=== PATIENT | female | born 1990 | race Caucasian/White ===

== ENCOUNTER 2020-08-22 14:51 | Emergency (ER) | payer OTHER, SELFPAY ==
[2020-08-22 15:01] VITALS: BP 129/75; PULSE 84; RESP 18; TEMP 37.1; O2SAT 100; BMI 35.4
--- NOTE | 2020-08-22 15:12 | ED.ALLEREA ---
HPI - Allergic Reaction General Chief complaint: Allergic Reaction Stated complaint: allergic reaction Time Seen by Provider: 08/22/20 15:06 Source: patient Mode of arrival: ambulatory History of Present Illness HPI narrative: 30-year-old female with a PMHx of asthma complaining of pruritus, throat itching, cough, and chest tightness s/p receiving flu shot today around 2:00pm. reports using albuterol inhaler with resolution of chest tightness. Denies SOB, rash, drooling, inability to handle secretions. Denies known allergies. Reports has received flu vaccine in the past without reaction complaint: allergic reaction Onset (ago): hour(s) Exposure: medication Symptoms: itching and hoarseness Severity: moderate Related Data Allergies Allergy/AdvReac Type Severity Reaction Status Date / Time No Known Allergies Allergy Verified 08/22/20 14:55 Review of Systems Review of Systems: Constitutional: No Weight loss, No Fever, No Chills, No Night Sweats, ENT/Mouth: No Nasal Congestion, No Sinus Pain, +Hoarseness, No Rhinorrhea, No Swallowing Difficulty Cardiovascular: No Chest Pain, + SOB (improving) Respiratory: + Cough, No Sputum, No Wheezing, No Smoke Exposure Gastrointestinal: No Nausea, No Vomiting, N Skin: No Skin Lesions, No rash Yes all other systems are reviewed and are negative PMFSH Past Medical History Attestation statement: The following information was validated with the patient. Medical History Asthma Social History Social History Smoking Status: Never smoker Advance Directives: No Advance Directives Information Provided: Yes Physical Exam Vital Signs and I&O and Narrative: Vital Signs and I&O: Vital Signs Temp 97.8 F 08/22/20 16:00 Pulse 68 08/22/20 16:00 Resp 16 08/22/20 16:00 BP 106/58 L 08/22/20 16:00 Pulse Ox 100 08/22/20 16:00 Intake & Output 08/21/20 08/22/20 08/22/20 18:59 06:59 18:59 Weight 90.718 kg Body Mass Index 35.4 Const: General: cooperative and healthy appearing Orientation/consciousness: patient oriented x3 Limitations: no limitations HENMT: Head: Yes normal to inspection Ears: hearing grossly normal bilaterally General nose exam: Normal external nose present Face and sinus: Yes normal facial exam Mouth: Normal oral and palatal mucosa present, no drooling and no muffled voice Throat: Yes posterior oropharynx normal, Yes uvula midline and No uvular edema Eyes: General: appearance normal, both eyes and all related structures Pupils: Equal, round and reactive pupils present EOM: EOMs intact bilaterally Neck: Neck: Yes normal visual inspection, Yes trachea midline and Yes supple Resp: Effort & Inspection: normal respiratory effort and no stridor Auscultation: clear to auscultation bilaterally, no crackles, no rales, no rhonchi and no wheezes Cardio: Rate: regular rate Heart sounds: S1 normal heart sound present and S2 normal heart sound present Skin: Rashes: no rashes Wounds: no wounds Neuro: General: patient oriented x3 Cranial nerves: Yes Equal, round and reactive pupils present Course Reevaluation(s) Reevaluation #1: on re-evaluation patient reports symptomatic resolution. Vital signs stable. Denies throat closing sensation, cough, itching, swelling, difficulty breathing. Worrisome signs and symptoms and strict return precautions discussed. Patient verbalized understanding feel safe for discharge Time: 16:45 MDM - Allergic Reaction MDM Narrative Medical decision making narrative: 30-year-old female with a PMHx of asthma complaining of pruritus, throat itching, cough, and chest tightness s/p receiving flu shot today around 2:00pm. On exam VSS, NAD/well-appearing, lungs CTA. No oral swelling / drooling. Uvula midline. Likely allergic reaction. No anaphylaxis. Low concern for asthma exacerbation plan: Benadryl, Pepcid, Solu-Medrol, reassess Differential Diagnosis Differential diagnosis: Likely allergic reaction, adverse reaction to drug, viral enanthem and urticaria Medical Records Attestation: I reviewed the patient's medical records. Discharge Plan Discharge Clinical Impression: Allergic reaction Patient Disposition: Home, Self-Care Instructions: Allergies (ED) Additional Instructions: if you develop itching, swelling, rash, throat closing sensation, difficulty breathing return to the ED immediately taking Benadryl at home if symptoms recur /you develop itching Take Zyrtec during the day as it will not make you drowsy You may also use your albuterol inhaler Follow-up with her primary care doctor/advertising director for allergy testing Referrals: Physician,Unknown [Primary Care Provider] - 2 days
[2020-08-22] MEDS: diphenhydrAMINE HCL 50 MG/ML VIAL 25 MG IVPUSH (15:16)
[2020-08-22] MEDS: Famotidine/PF 20 MG/2 ML VIAL IVPUSH (15:17)
[2020-08-22] MEDS: methylPREDNISolone Sod Succ/PF 125 MG/2 ML VIAL IVPUSH (15:17)
--- NOTE | 2020-08-22 15:36 | PC.NURSE ---
PT ALERT AND VERBAL. SKIN WPD. RESPIRATIONS EVEN AND NON LABORED. LUNGS CTA. REPORTS ITCHINESS TO LEFT UPPER ARM AND THROAT SINCE RECEIVING FLU SHOT THIS AFTERNOON. CLEARING THROAT OFTEN. NO OBVIOUS SWELLING, REDENESS TO BACK OF THROAT. NO OBVIOUS HIVES, REDNESS, SWELLING TO LEFT UPPER ARM. PT MEDICATED WITH SOLUMEDROL, PEPCID, BENEDRYL PER EMAR. WILL CONTINUE TO MONITOR.
[2020-08-22 16:00] VITALS: BP 106/58; PULSE 68; RESP 16; TEMP 36.6; O2SAT 100
== END 2020-08-22 17:30 | disposition home or self-care (01) ==
PROVIDERS: Emergency Provider Emergency Medicine
DX: T80.62XA Other serum reaction due to vaccination, initial encounter (principal); L29.9 Pruritus, unspecified; J45.909 Unspecified asthma, uncomplicated
CPT/HCPCS: 96374; 96375; 99284; J1200; J2930